=== PATIENT | female | born 1970 | race Hispanic/Latino ===

== ENCOUNTER 2017-03-27 02:18 | Emergency (ER) | payer OTHER ==
[~2017-03-27] VITALS: Ht 165.1 cm; Wt 63.5 kg
[~2017-03-27 02:18] MED LIST: BISAC-EVAC10 M1 PR; DOCUSATE SODIU100 M3 PO; HYDROMORPHONE HC2 M1 PO; IBUPROFEN800 M1 PO; MILK OF MA400 MG/52 PO; OMEPRAZOLE20 M2 PO; ONDANSETRON4 MG/2 M3 IV; SENNA8.6 M3 PO; SIMETHICONE80 M1 PO
[2017-03-27 02:29] VITALS: BP 152/85
[2017-03-27] MEDS ORDERED: SOOLANTRA30 GM (02:35)
--- NOTE | 2017-03-27 02:35 | ED SKIN/ALLERGY COMPLAINT ---
History of Present Illness General Chief Complaint: Allergy Symptoms Stated Complaint: SKIN RASH Source: patient Exam Limitations: no limitations Vital Signs & Intake/Output Vital Signs & Intake/Output Vital Signs Date Time Temp Pulse Resp B/P B/P Pulse O2 O2 Flow FiO2 Mean Ox Delivery Rate 03/27 0234 Room Air 03/27 0229 97.4 72 18 152/85 95 Room Air Allergies Coded Allergies: iodine (UNKNOWN 03/14/16) shellfish derived (UNKNOWN 03/14/16) codeine (HEART RACES 03/15/16) oxycodone (SICK, NAUSEA, ANXIETY 03/15/16) Reconcile Medications Bisacodyl (Bisac-Evac) 10 MG SUPP.RECT 10 MG AK DAILY NEEDED PRN CONSTIPATION Cephalexin 500 MG CAPSULE 1 CAP PO BID ROSACEA (Reported) Docusate Sodium 100 MG CAPSULE 100 MG PO Q12P PRN CONSTIPATION Hydromorphone HCl 2 MG TABLET 2 MG PO Q4P PRN PAIN Ibuprofen 800 MG TABLET 1 TAB PO PRN PAIN (Reported) Ivermectin (Soolantra) 1 % CREAM..G. ROSACEA (Reported) Magnesium Hydroxide (Milk Of Magnesia) 400 MG/5 ML ORAL.SUSP 30 ML PO DAILY NEEDED PRN CONSTIPATION Omeprazole 20 MG CAPSULE.DR 1 CAP PO DAILY REFLUX (Reported) Sennosides (Senna) 8.6 MG TABLET 374 MG PO DAILY NEEDED PRN CONSTIPATION Simethicone 80 MG TAB.CHEW 80 MG PO Q12P PRN GAS Triage Note: PT TO TRIAGE FROM HOME C/O ?RASH TO FACE. 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 PT REPORTS REDNESS AND ITCHINESS TO FACE FOR PAST 3 DAYS. PT REPORTS TAKING BENADRYL WITHOUT RELIEF. RASH IS LOCALIZED. NO RESP DISTRESS OR DIFF SWALLOWING. Triage Nurses Notes Reviewed? yes : No Patient currently breastfeeds: No HPI: Patient presents for evaluation of an uncomfortable red rash of the face only that has been present for a number of weeks. She has been seen by a saturator tender and is currently taking ivermectin cephalexin and Benadryl. She states the symptoms haven't gotten any better. The rash has been constant since onset and continues here in the emergency department. It is described as moderate to severe in intensity and nothing seems to make it better. Past History Travel History Traveled to [place] past 21 day No Medical History Any Pertinent Medical History? 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 No Review of Systems Review of Systems Constitutional: Reports: no symptoms. EENTM: Reports: no symptoms. Respiratory: Reports: no symptoms. Cardiovascular: Reports: no symptoms. GI: Reports: no symptoms. Genitourinary: Reports: no symptoms. Musculoskeletal: Reports: no symptoms. Skin: Reports: see HPI. Neurological/Psychological: Reports: no symptoms. Hematologic/Endocrine: Reports: no symptoms. Immunologic/Allergic: Reports: no symptoms. All Other Systems: Reviewed and Negative Physical Exam Physical Exam General Appearance: SEE BELOW Comments: Gen.: Well-nourished, well-developed, no acute respiratory distress. Head: Normocephalic, atraumatic. Eyes: Normal inspection bilaterally Ears: Normal inspection bilaterally Nose: Normal inspection Face: Erythematous confluent macular rash of the central forehead periorbital region, malar region and chin. Throat/mouth : Moist mucosa Neck: Supple, full range of motion, no goiter Heart: Regular rate and rhythm, no murmurs rubs or gallops Lungs: Clear to auscultation bilaterally with normal air entry Chest: Nontender Back: Normal range of motion Abdomen: Soft, nontender, nondistended, normal bowel sounds Extremities: Normal range of motion grossly, equal radial pulses, no cyanosis clubbing or edema Neurologic: Cranial nerves grossly intact, speech is clear Skin: warm and dry Psychiatric: Calm, cooperative, no apparent delusions or hallucinations Progress Differential Diagnosis: abscess/cellulitis, allergic reaction, contact dermatitis, drug reaction Plan of Care: Continue ivermectin and add metronidazole. His continue cephalexin. Follow-up with saturator tender. Departure Departure Disposition: HOME OR SELF CARE Condition: Stable Clinical Impression Primary Impression: Rosacea Referrals: LAYNE MATOS MD (PCP/Family) Additional Instructions: Stop taking the cephalexin. Begin metronidazole as prescribed. Continue the ivermectin as prescribed. Avoid sun exposure. Follow-up with your saturator tender in 2 weeks. Return if any concerns or sudden worsening. Thank you for choosing the [facility] Emergency Department for your care. It was a pleasure to serve you today. Fan Webster M.D. [facility] Departure Forms: Customer Survey General Discharge Information Prescriptions: Current Visit Scripts Metronidazole (Flagyl) 1 TAB PO TID #30 TAB
[2017-03-27] MEDS ORDERED: CEPHALEXIN500 M3 PO (02:36)
[2017-03-27] MEDS ORDERED: FLAGYL500 MG PO (02:52)
== END 2017-03-27 02:58 ==
LOC: ERH 02:18
DX: L71.9 Rosacea, unspecified (principal)

== ENCOUNTER 2017-10-06 14:06 | Emergency (ER) | payer OTHER ==
[~2017-10-06] VITALS: Ht 165.1 cm; Wt 72.6 kg
[~2017-10-06 14:06] MED LIST changes: +CEPHALEXIN500 M3 PO; +FLAGYL500 MG PO; +SOOLANTRA30 GM
[2017-10-06 14:31] LABS: ABSOLUTE BASOPHIL COUNT 0 /CUMM (0.0-0.2); ABSOLUTE EOSINOPHIL COUNT 0.1 /CUMM (0.0-0.7); ABSOLUTE GRANULOCYTE CT 3.3 /CUMM (1.4-6.5); ABSOLUTE LYMPH COUNT 1.8 /CUMM (1.2-3.4); ABSOLUTE MONOCYTE COUNT 0.4 /CUMM (0.10-0.60); BASOPHIL % 0.4 % (0.0-2.0); EOSINOPHIL % 1.2 % (0-5); GRANULOCYTE % 60.2 % (42.2-75.2); HEMATOCRIT 38.7 % (37-47); MEAN CORPUSCULAR HGB 30.5 PG (27.0-31.0); MEAN CORPUSCULAR HGB CONC 33.7 G/DL (33.0-37.0); MEAN CORPUSCULAR VOLUME 90.4 FL (81.0-99.0); MEAN PLATELET VOLUME 8.2 FL (7.4-10.4); PLATELET COUNT 279 /CUMM (130-400); RBC DISTRIBUTION WIDTH 13.5 % (11.5-14.5); RED BLOOD CELL CT 4.28 /CUMM (4.20-5.40); WHITE BLOOD CELL COUNT 5.6 /CUMM (4.8-10.8)
--- NOTE | 2017-10-06 16:18 | ED GI/GU/ABDOMINAL COMPLAINT ---
History of Present Illness General Chief Complaint: Abdominal Pain/Flank Pain Stated Complaint: ABD PAIN Source: patient, old records Exam Limitations: no limitations Vital Signs & Intake/Output Vital Signs & Intake/Output Vital Signs Date Time Temp Pulse Resp B/P B/P Pulse O2 O2 Flow FiO2 Mean Ox Delivery Rate 10/06 1748 88 16 125/70 100 Room Air 10/06 1414 98.6 68 16 142/79 100 Room Air Allergies Coded Allergies: iodine (ITCHING 10/06/17) shellfish derived (FULL BODY RASH AND CANT BREATHE 10/06/17) codeine (HEART RACES 03/15/16) oxycodone (SICK, NAUSEA, ANXIETY 03/15/16) Reconcile Medications Ascorbic Acid/Collagen Hydr (Collagen Plus Vit C Capsule) (Unknown Strength) CAPSULE (Unknown Dose) PO DAILY SUPPLEMENT (Reported) Ibuprofen 800 MG TABLET 1 TAB PO PRN PAIN (Reported) Lansoprazole 30 MG CAPSULE. 1 CAP PO DAILY GI (Reported) Triage Note: 47F C/O EPIGASTRIC/SUBSTERNAL ABDOMINAL PAIN +N/-V AND HAD COLONOSCOPY AND ENDOSCOPY DONE BY DR AUGUST YESTERDAY. TESTS DONE BECAUSE OF FREQUENT ABD PAIN AND HX BLOOD TO STOOL. NONE TODAY. TOOK PREVACID WITHOUT RELIEF. DENIES CP/SOB Triage Nurses Notes Reviewed? yes ? N Is pt currently ? No Onset: Gradual Duration: day(s): Timing: yesterday Quality/Severity: sharpness, severe Severity Numbers: 10 Location: epigastric Activities at Onset: s/p endoscopy HPI: 47-year-old female with history of hiatal hernia presents to emergency department complaining of epigastric pain beginning last night following endoscopy/colonoscopy procedure performed yesterday with Dr. August. Pain is described as sharp, severe, 10/10, gradually worsening. He should also complaining of nausea however no vomiting. Patient has been able to eat and drink today with minimal pain after eating. Patient had procedure performed due to her lower abdominal pain however she had no pain in the epigastric area prior to procedure. Patient's last bowel movement was this morning and normal. She denies dyspnea, fevers, chills, diarrhea, constipation. (Soco HERNANDEZ,Iva Alvarenga) Past History Travel History Traveled to [place] past 21 day No Medical History Any Pertinent Medical History? 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 No (Iva Tapia) Review of Systems Review of Systems Constitutional: Reports: no symptoms. EENTM: Reports: no symptoms. Respiratory: Reports: no symptoms. Cardiovascular: Reports: no symptoms. GI: Reports: see HPI. Genitourinary: Reports: no symptoms. Musculoskeletal: Reports: no symptoms. Skin: Reports: no symptoms. Neurological/Psychological: Reports: no symptoms. Hematologic/Endocrine: Reports: no symptoms. Immunologic/Allergic: Reports: no symptoms. All Other Systems: Reviewed and Negative (Iva Tapia) Physical Exam Physical Exam General Appearance: well developed/nourished, no apparent distress, alert, awake Head: atraumatic, normal appearance Eyes: Bilateral: normal appearance. Ears, Nose, Throat, Mouth: hearing grossly normal Neck: normal inspection, supple, full range of motion Respiratory: normal breath sounds, no respiratory distress, lungs clear Cardiovascular: regular rate/rhythm Gastrointestinal: normal bowel sounds, soft, no organomegaly, epigastric tenderness Back: normal inspection, normal range of motion Extremities: normal range of motion Neurologic/Psych: awake, alert, oriented x 3 Skin: intact, normal color, warm/dry Core Measures ACS in differential dx? No Sepsis Present: No Sepsis Focused Exam Completed? No (Iva Tapia) Progress Differential Diagnosis: appendicitis, bowel obstruction, esophageal varices, gastritis, pancreatitis, peptic ulcer, PUD/GERD, perforated viscous, SBO Plan of Care: Orders Procedure Date/time Status Add-on Test (ER Only) 10/06 1602 Active LIPASE 10/06 1425 Complete AMYLASE 10/06 1425 Complete URINE 10/06 1413 Complete URINALYSIS 10/06 1413 Complete COMPREHENSIVE METABOLIC PANEL 10/06 1413 Complete CBC WITHOUT DIFFERENTIAL 10/06 141 Complete Laboratory Tests 10/06/17 1612: Urine Color YEL, Urine Clarity CLEAR, Urine pH 6.5, Ur Specific [place] 1.020, Urine Protein NEG, Urine Ketones NEG, Urine Nitrite NEG, Urine Bilirubin NEG, Urine Urobilinogen 0.2, Ur Leukocyte Esterase SMALL H, Ur Microscopic SEDIMENT EXAMINED, Urine WBC 1-3 H, Ur Epithelial Cells MOD H, Urine Bacteria RARE H, Urine Hemoglobin NEG, Urine Glucose NEG, Urine Test NEGATIVE 10/06/17 1425: Anion Gap 11, Estimated GFR > 60, BUN/Creatinine Ratio 15.0, Glucose 99, Calcium 9.4, Total Bilirubin 0.2, AST 26, ALT 39, Alkaline Phosphatase 76, Total Protein 7.7, Albumin 4.5, Globulin 3.2, Albumin/Globulin Ratio 1.4, Amylase 44, Lipase 55, CBC w Diff NO MAN DIFF REQ, RBC 4.28, MCV 90.4, MCH 30.5, RDW 13.5, MPV 8.2, Gran % 60.2, Lymphocytes % 31.8, Monocytes % 6.4, Eosinophils % 1.2, Basophils % 0.4, Absolute Granulocytes 3.3, Absolute Lymphocytes 1.8, Absolute Monocytes 0.4 , Absolute Eosinophils 0.1, Absolute Basophils 0, PUBS MCHC 33.[address] August regarding patient: He recommends first trying a GI cocktail. If no relief obtain CT scan to further assess patient's abdominal pain. Patient reports relief of her abdominal pain following GI cocktail, she no longer as any epigastric pain. The patient was given a prescription for GI cocktail to go home with and will follow up with GI next week. Patient is in no acute distress, sitting comfortably in stretcher while waiting for results. Her x-ray shows no signs of bowel perforation or free air. Vital Signs are stable. The patient was discussed with Dr. Thomas who agrees with the plan of care. GI cocktail prescription called in to the patient's pharmacy. Diagnostic Imaging: Viewed by Me: Radiology Read. Discussed w/RAD: Radiology Read. Radiology Impression: PATIENT: JULIAN ENGLISH PRESENT AGE: 47 PATIENT ACCOUNT NO: [id number] : 71 LOCATION: [facility] ORDERING PHYSICIAN: Iva HERNANEDZ SERVICE DATE: 10/06/17 EXAM TYPE: RAD - [id number] VIEWS EXAMINATION: XR ABDOMEN MULTIPLE VIEWS CLINICAL INDICATION: Epigastric pain following endoscopy. COMPARISON: None TECHNIQUE: 2 views of the abdomen. PA chest FINDINGS: No free air. There is no evidence of free air or obstruction. No abnormal calcifications are seen. Chest is normal. Lungs are clear. Cardiac and mediastinal contours are normal. No pleural effusion. IMPRESSION: Normal abdomen and chest. No free air. DICTATED BY: Dharmesh Dumont MD DATE/TIME DICTATED:10/06/171730 MACHINE WIPER:SRAVANI DATE/ TIME TRANSCRIBED:10/06/171730 CONFIDENTIAL, DO NOT COPY WITHOUT APPROPRIATE AUTHORIZATION. <Electronically signed in Other Vendor System> SIGNED BY: Dharmesh Dumont MD 10/06/171734 Initial ED EKG: none (Iva Tapia) Departure Departure Disposition: HOME OR SELF CARE Condition: Stable Clinical Impression Primary Impression: Epigastric pain Referrals: Adriel Rogers MD (PCP/Family) Additional Instructions: Take GI cocktail as prescribed for abdominal pain. Mix 10Ml of Maalox with 10Ml of lidocaine and take this twice daily for your symptoms as needed. Follow-up with Dr. August during the week next week. If your symptoms are worsening or any other concerns please return to the emergency department for further assessment. Please note that there might be incidental findings in your evaluation that are unrelated to the current emergency department visit. Please notify your primary care doctor about this emergency department visit in order to obtain and review all of the testing performed so that these incidental findings can be monitored as needed. If you had an x-ray performed, please understand that some fractures may not be seen on the initial set of x-rays. If your symptoms persist you might need a repeat set of x-rays to check for such a fracture. If you had a laceration evaluated, please understand that foreign bodies such as glass or wood may not be visible to the naked eye or on plain x-rays. If the wound becomes red, swollen, increasingly more painful or if there is any drainage from the wound, please have it reevaluated by a physician for the possibility of a retained foreign body. If you're unable to follow up as outlined in the discharge instructions please return to the emergency department. Thank you for choosing the [facility] Emergency Department for your care. It was a pleasure to serve you today. Departure Forms: Customer Survey General Discharge Information ([place] PA,Iva Colette) PA/PLASTICS TECHNICIAN Co-Sign Statement Statement: ED Attending supervision documentation- [] I saw and evaluated the patient. I have also reviewed all the pertinent lab results and diagnostic results. I agree with the findings and the plan of care as documented in the PA's/PLASTICS TECHNICIAN's documentation. [X] I have reviewed the ED Record and agree with the PA's/PLASTICS TECHNICIAN's documentation. [] Additions or exceptions (if any) to the PAs/PLASTICS TECHNICIAN's note and plan are summarized below: [] (William WASHINGTON,Lori)
--- NOTE | 2017-10-06 17:35 | RADIOLOGY REPORT ---
EXAMINATION: XR ABDOMEN MULTIPLE VIEWS CLINICAL INDICATION: Epigastric pain following endoscopy. COMPARISON: None TECHNIQUE: 2 views of the abdomen. PA chest FINDINGS: No free air. There is no evidence of free air or obstruction. No abnormal calcifications are seen. Chest is normal. Lungs are clear. Cardiac and mediastinal contours are normal. No pleural effusion. IMPRESSION: Normal abdomen and chest. No free air.
[2017-10-06] MEDS ORDERED: LANSOPRAZOLE30 M2 PO (17:40)
[2017-10-06] MEDS ORDERED: COLLAGEN PLUS1 EACH PO (17:42)
[2017-10-06 17:48] VITALS: BP 125/70
== END 2017-10-06 18:01 ==
LOC: ERH 14:06
PROVIDERS: Physician Assistant Medical
DX: R10.13 Epigastric pain (principal)
CPT/HCPCS: 74020; 81001; 81025

== ENCOUNTER → 2017-12-06 | Day surgery (SDC) | payer OTHER ==
[2007-11-22 15:43] VITALS: BP 120/70
[~2017-12-06] MED LIST changes: +COLLAGEN PLUS1 EACH PO; +LANSOPRAZOLE30 M2 PO
--- NOTE | 2017-12-11 14:39 | Operative Report ---
Operative/Inv Procedure Report Surgery Date: 12/06/17 Name of Procedure: Diagnostic laparoscopy lysis of adhesions Pre-Operative Diagnosis: Pelvic pain Post-Operative Diagnosis: Adhesions Estimated Blood Loss: less than 50ml Surgeon/Driver'S Education Instructor: aMry Salvador MD Anesthesia: general endotracheal tube Operative/Procedure Note Note: Procedure note patient was taken the operating room placed on position after adequate anesthesia patient was dorsal lithotomy position the vagina from dorsal fashion a sponge stick with 2 sponges was placed into the vagina patient tolerated that well at this point the surgeon regowned and gloved. At the level of the umbilicus a stab incision was made to allow for the entry of Veress needle the abdomen was insufflated possibly fully Z CO2 to liver edge dullness which point the Veress needle was removed a 10 mm trocar was inserted atraumatically the umbilicus sheath remained placed through that sheath a laparoscope placed under direct visualization a 5 mm port was placed 2 fingerbreadths above the symphysis pubis to avoid the dense adhesion peritoneal washings were obtained on at this point I blunt as well. Lysis of adhesions was performed using a peanut as well as sharply using scissors patient tolerated that well I at the end of the lysis of adhesions Vidya SARAH STA was applied to the surgical site for hemostasis which was apparent all instruments removed from the abdomen under direct visualization patient tolerated that well I the incision at the umbilicus was oversewn using 0 on the skin was reapproximated using 30 Marcaine was injected underneath the skin of both incisions at the end of the case the counts correct the urine was clear the Sr cannula was removed the Flood was removed the patient was returned spine position awakened from anesthesia and transferred recovery room awake alert counts correct Findings: Normal right ovary to left adnexa with a piece of omentum attached to the pelvic sidewall Dantz otherwise normal in
== END ==
LOC: STS 02:58
DX: N73.6 Female pelvic peritoneal adhesions (postinfective) (principal); R10.2 Pelvic and perineal pain; K44.9 Diaphragmatic hernia without obstruction or gangrene
CPT/HCPCS: 88305; C9399; J0131; J1630; J2250; J2405

== ENCOUNTER 2018-03-26 21:41 | Emergency (ER) | payer OTHER ==
--- NOTE | 2018-03-26 23:58 | ED GENERAL ADULT ---
See Addendum History of Present Illness General Chief Complaint: General Adult Stated Complaint: SUDDEN ONSET OF DIZZINESS,HIGH PULSE AND PRESSURE Source: patient Exam Limitations: no limitations Vital Signs & Intake/Output Vital Signs & Intake/Output Vital Signs Date Time Temp Pulse Resp B/P B/P Pulse O2 O2 Flow FiO2 Mean Ox Delivery Rate 03/27 0241 97.8 58 16 118/70 98 Room Air 03/27 0044 97.8 64 16 124/73 100 Room Air 03/26 2147 98.0 72 17 158/99 98 Room Air ED Intake and Output 03/27 0000 03/26 1200 Intake Total Output Total Balance Patient 163 lb Weight Weight Reported by Patient Measurement Method Allergies Coded Allergies: iodine (ITCHING 10/06/17) shellfish derived (FULL BODY RASH AND CANT BREATHE 10/06/17) codeine (HEART RACES 03/15/16) oxycodone (SICK, NAUSEA, ANXIETY 03/15/16) Reconcile Medications Ibuprofen 800 MG TABLET 1 TAB PO PRN PAIN (Reported) Triage Note: PT WAS SITTING DRINKING TEA TONIGHT, WHEN SHE BEGAN FEELING DIZZY. PT THEN FELT HER HEART RACING. USED A FAMILY MEMBERS BP CUFF AT HOME AND GOT BP READING 183/113. DENIES HX HTN. DENIES SOB OR CP. REPORTS MILD HEADACHE. Triage Nurses Notes Reviewed? yes Onset: Abrupt Duration: hour(s): (2), better, changing over time, gone now Timing: single episode today Injury Environment: home Severity: mild, moderate No Modifying Factors: none LMP (ages 10-50): unknown : No Patient currently breastfeeds: No HPI: 47 year old female past medical history of polio presents for evaluation of an episode of dizziness lightheadedness and palpitations. Patient states she was sitting on the couch when she suddenly felt dizzy lightheaded and felt like her heart was racing. She states that she took her blood pressure was 180s over 1 teens. She states this lasted for several minutes for going away. She then came to the emergency department had another episode in the waiting room. Currently still reporting mild lightheadedness. She denies any chest pain shortness of breath nausea vomiting sweats chills numbness tingling one-sided weakness slurred speech. No headache. No fever. (Clif Doherty) Past History Travel History Traveled to [place] past 21 day No Medical History Any Pertinent Medical History? 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 No (Clif Doherty) Review of Systems Review of Systems Constitutional: Reports: no symptoms. EENTM: Reports: no symptoms. Respiratory: Reports: no symptoms. Cardiovascular: Reports: palpitations. GI: Reports: no symptoms. Genitourinary: Reports: no symptoms. Musculoskeletal: Reports: no symptoms. Skin: Reports: no symptoms. Neurological/Psychological: Reports: see HPI (DIZZY LIGHTHEADED). Hematologic/Endocrine: Reports: no symptoms. Immunologic/Allergic: Reports: no symptoms. All Other Systems: Reviewed and Negative (Clif Doherty) Physical Exam Physical Exam General Appearance: well developed/nourished, no apparent distress, alert, awake Head: atraumatic, normal appearance Eyes: Bilateral: normal appearance, PERRL, EOMI. Ears, Nose, Throat: normal pharynx, normal ENT inspection, hearing grossly normal Neck: normal inspection, supple, full range of motion Respiratory: normal breath sounds, chest non-tender, no respiratory distress, lungs clear Cardiovascular: regular rate/rhythm, normal peripheral pulses Peripheral Pulses: 2+ radial (R), 2+ radial (L) Gastrointestinal: normal bowel sounds, soft, non-tender, no organomegaly Back: normal inspection, normal range of motion, no vertebral tenderness Extremities: normal inspection, normal range of motion, no edema Neurologic/Psych: no motor/sensory deficits, awake, alert, oriented x 3, normal gait, 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 No CVA/TIA Diagnosis: No Sepsis Present: No Sepsis Focused Exam Completed? No (Clif Doherty) Progress Differential Diagnoses I considered the following diagnoses in my evaluation of the patient: [Vertigo, dysrhythmia, migraine, electrolyte abnormality, acute coronary syndrome] Plan of Care: Orders Procedure Date/time Status TROPONIN LEVEL 03/27 023 Complete EKG 03/27 023 Active EKG 03/27 013 Active TSH REFLEX 03/27 002 Complete TOTAL TRIODOTHYROXINE 03/27 002 Complete MAGNESIUM 03/27 002 Complete HUMAN BETA HCG SCREEN 03/27 22 Complete FREE T4 03/27 22 Complete URINALYSIS 03/26 235 Complete Add-on Test (ER Only) 03/26 2350 Active TROPONIN LEVEL 03/26 2307 Complete LIPASE 03/26 230 Complete HEPATIC FUNCTION PANEL 03/26 230 Complete CBC WITHOUT DIFFERENTIAL 03/26 2307 Complete BASIC METABOLIC PANEL 03/26 230 Complete AMYLASE 03/26 2307 Complete EKG 03/26 2143 Active Laboratory Tests 03/27/18 0237: Troponin I < 0.01 03/27/18129: Troponin I Cancelled 03/27/18 0022: Anion Gap 12, Estimated GFR > 60, BUN/Creatinine Ratio 21.7, Glucose 93, Calcium 9.4, Magnesium 2.2, Total Bilirubin 0.3, Direct Bilirubin 0.2, AST 28, ALT 30, Alkaline Phosphatase 84, Troponin I < 0.01, Total Protein 7.8, Albumin 4.4, Amylase 56, Lipase 46, Free T4 0.77, Total T3 1.82 H, TSH &T3 &Free T4 Intrp 4.610 H, Total Beta HCG NEGATIVE, CBC w Diff NO MAN DIFF REQ, RBC 4.30, MCV 89.1, MCH 30.6, MCHC 34.4, RDW 13.6, MPV 8.7, Gran % 60.4, Lymphocytes % 31.6, Monocytes % 6.6, Eosinophils % 1.0, Basophils % 0.4, Absolute Granulocytes 4.3, Absolute Lymphocytes 2.3, Absolute Monocytes 0.5, Absolute Eosinophils 0.1, Absolute Basophils 0 03/27/18 0015: Urine Color YEL, Urine Clarity HAZY H, Urine pH 7.0, Ur Specific [place] 1.010, Urine Protein NEG, Urine Ketones NEG, Urine Nitrite NEG, Urine Bilirubin NEG, Urine Urobilinogen 0.2, Ur Leukocyte Esterase LARGE H, Ur Microscopic SEDIMENT EXAMINED, Urine RBC RARE, Urine WBC 10-15 H, Ur Epithelial Cells MOD H, Urine Bacteria MOD H, Urine Hemoglobin NEG, Urine Glucose NEG 03/26/18 2308: Total Beta HCG Cancelled Patient seen and evaluated. She is here for 2 episodes of dizziness lightheadedness or presyncope and palpitations. Both episodes lasted less than a minute. She never had chest pain or shortness of breath. Labs EKGs ordered. Patient currently is only reported mild lightheadedness. Patient signout to Dr. Gutierrez pending labs and EKGs Diagnostic Imaging: Viewed by Me: Radiology Read. Discussed w/RAD: Radiology Read. Radiology Impression: PATIENT: JULIAN ENGLISH PRESENT AGE: 47 PATIENT ACCOUNT NO: [id number] : 71 LOCATION: [facility] ORDERING PHYSICIAN: Clif HERNANDEZ SERVICE DATE: 03/26/18 EXAM TYPE: RAD - XRY- CHEST XRAY, TWO VIEWS EXAMINATION: XR CHEST CLINICAL INFORMATION: Episode of chest pressure COMPARISON: 10/22/2017 TECHNIQUE: 2 views of the chest were obtained. FINDINGS: The lungs are clear with no focal consolidation. No evidence of pneumothorax, pulmonary edema, or pleural effusions. The cardiomediastinal silhouette is unremarkable. No acute osseous findings. IMPRESSION: No acute cardiopulmonary findings. DICTATED BY: Roel Carrasquillo MD DATE/TIME DICTATED:17 AUTO TIRE RECAPPER:SRAVANI DATE/TIME TRANSCRIBED:03/27/1817 CONFIDENTIAL, DO NOT COPY WITHOUT APPROPRIATE AUTHORIZATION. <Electronically signed in Other Vendor System> SIGNED BY: Roel Carrasquillo MD 03/27/18 0023 Initial ED EKG: normal sinus rhythm, nonspecific ST T wave chg, LAFB Prior EKG: unchanged Hand-Off Endorsed To: Jas Gutierrez MD Endorsed Time: 110 Pending: EKG, labs (Clif Doherty) Differential Diagnoses I considered the following diagnoses in my evaluation of the patient: Initial ED EKG: normal axis, normal p-waves (Jas Gutierrez MD) Departure Departure Disposition: STILL A PATIENT Condition: Stable Clinical Impression Primary Impression: Pre-syncope Referrals: Adriel Rogers MD (PCP/Family) Departure Forms: Customer Survey General Discharge Information (Clif Doherty) PA/HADOOP APPLICATION DEVELOPER Co-Sign Statement Statement: ED Attending supervision documentation- [] I saw and evaluated the patient. I have also reviewed all the pertinent lab results and diagnostic results. I agree with the findings and the plan of care as documented in the PA's/HADOOP APPLICATION DEVELOPER's documentation. []x I have reviewed the ED Record and agree with the PA's/HADOOP APPLICATION DEVELOPER's documentation. [] Additions or exceptions (if any) to the PAs/HADOOP APPLICATION DEVELOPER's note and plan are summarized below: [] (Brenda WASHINGTON,Jas Stanton) Critical Care Note Critical Care Note Critical Care Time: non-applicable (Clif Doherty)
--- NOTE | 2018-03-27 00:23 | RADIOLOGY REPORT ---
EXAMINATION: XR CHEST CLINICAL INFORMATION: Episode of chest pressure COMPARISON: 10/22/2017 TECHNIQUE: 2 views of the chest were obtained. FINDINGS: The lungs are clear with no focal consolidation. No evidence of pneumothorax, pulmonary edema, or pleural effusions. The cardiomediastinal silhouette is unremarkable. No acute osseous findings. IMPRESSION: No acute cardiopulmonary findings.
[2018-03-27 00:51] LABS: ABSOLUTE BASOPHIL COUNT 0 /CUMM (0.0-0.2); ABSOLUTE EOSINOPHIL COUNT 0.1 /CUMM (0.0-0.7); ABSOLUTE GRANULOCYTE CT 4.3 /CUMM (1.4-6.5); ABSOLUTE LYMPH COUNT 2.3 /CUMM (1.2-3.4); ABSOLUTE MONOCYTE COUNT 0.5 /CUMM (0.10-0.60); BASOPHIL % 0.4 % (0.0-2.0); GRANULOCYTE % 60.4 % (42.2-75.2); HEMATOCRIT 38.3 % (37-47); MEAN CORPUSCULAR HGB 30.6 PG (27.0-31.0); MEAN CORPUSCULAR HGB CONC 34.4 G/DL (33.0-37.0); MEAN CORPUSCULAR VOLUME 89.1 FL (81.0-99.0); MEAN PLATELET VOLUME 8.7 FL (7.4-10.4); PLATELET COUNT 260 /CUMM (130-400); RBC DISTRIBUTION WIDTH 13.6 % (11.5-14.5); WHITE BLOOD CELL COUNT 7.2 /CUMM (4.8-10.8)
[2018-03-27 02:41] VITALS: BP 118/70
== END 2018-03-27 03:40 ==
LOC: ERH 21:41
PROVIDERS: Pediatrics
DX: R55 Syncope and collapse (principal); R00.2 Palpitations
CPT/HCPCS: 71046; 81001; 93005; 93010